=== PATIENT | female | born 1995 | race Caucasian/White ===

== ENCOUNTER 2020-07-23 18:34 | Emergency (ER) | payer OTHER ==
[~2020-07-23 18:34] MED LIST: BENTYL 20MG TAB20 MG PO; FLEXERIL 10 MG10 MG PO; IBUPROFEN600 MG PO; KEFLEX CAP 500500 MG PO; LOMOTIL 2.5-0.1 EACH PO; NAPROSYN500 MG PO; Voltaren Gel 1 % TOP; ZOFRAN ODT 4 MG4 MG SL
[2020-07-23] MEDS ORDERED: IBUPROFEN800 MG PO (19:34)
== END 2020-07-23 20:18 | disposition home or self-care (01) ==
LOC: ER1 18:34
DX: S63.613A Unspecified sprain of left middle finger, initial encounter (principal); S60.222A Contusion of left hand, initial encounter; W01.0XXA Fall on same level from slipping, tripping and stumbling without subsequent striking against object, initial encounter; Y92.009 Unspecified place in unspecified non-institutional (private) residence as the place of occurrence of the external cause
CPT/HCPCS: 73130; 99283

== ENCOUNTER 2020-09-22 08:53 | Emergency (ER) | payer OTHER ==
[~2020-09-22 08:53] MED LIST changes: +IBUPROFEN800 MG PO
== END 2020-09-22 12:17 | disposition home or self-care (01) ==
LOC: ER1 08:53
DX: R51.9 Headache, unspecified (principal); Z79.899 Other long term (current) drug therapy
CPT/HCPCS: 70450; 96374; 99284; J1885; J7030

== ENCOUNTER 2021-07-17 18:17 | Emergency (ER) | payer OTHER ==
[2021-07-17 21:34] LABS: HEMOGLOBIN 14.6 gm/dl (12.3-15.3); RED BLOOD COUNT 5.17 M/UL (4.00-5.10); WHITE BLOOD COUNT 11.3 K/UL (4.5-11.0)
[2021-07-17 22:20] LABS: BUN/CREATININE RATIO 12 (0-10)
== END 2021-07-17 22:55 | disposition home or self-care (01) ==
LOC: ER1 18:17
PROVIDERS: Family Medicine
DX: R22.1 Localized swelling, mass and lump, neck (principal)
CPT/HCPCS: 70488; 80053; 84439; 84443; 85025; 99284; Q9967